=== PATIENT | male | born 1990 | race African-American/Black ===

== ENCOUNTER 2016-10-14 20:39 | Emergency (ER) | payer SELFPAY ==
[2016-10-14 21:00] VITALS: BP 142/79
[2016-10-14] MEDS ORDERED: Ketorolac INJ* 60 MG/2 ML VIAL IM ONE (21:23)
[2016-10-14] MEDS ORDERED: Cephalexin CAP* 500 MG PO ONE (21:24)
[2016-10-14] MEDS ORDERED: HYDROcodone/ACETAMIN 5-325 MG* 1 TAB PO ONE (21:24)
--- NOTE | 2016-10-14 21:51 | ED ---
Throat Pain/Nasal Congestion - HPI Summary HPI Summary: Patient arrives to ED with CC of pain over bottom left canine not radiating to the jaw or ear. Tooth has hole in it for several years. He feels food may have become stuck. Denies trismus, drooling or dysphagia. Pain is 8/10, sharp and throbbing. Denies airway compromise or SOB. Denies ear pain, eye pain, blurry vision or double vision. Otherwise healthy. Pain is worse with chewing and cold drinks, better with ibuprofen, but only improves slightly. Patient denies dental care for several years. - History of Current Complaint Chief Complaint: EDDentalPain Time Seen by Provider: 10/14/16 20:52 Hx Obtained From: Patient Onset/Duration: Sudden Onset Severity: Moderate Associated Signs And Symptoms: Positive: Negative - Epiglottits Risk Factors Epiglottis Risk Factors: Negative - Allergies/Home Medications Allergies/Adverse Reactions: Allergies Allergy/AdvReac Type Severity Reaction Status Date / Time No Known Allergies Allergy Verified 10/14/16 20:48 PMH/Surg Hx/FS Hx/Imm Hx Previously Healthy: Yes - Immunization History Hx Pertussis Vaccination: No Immunizations Up to Date: Unable to Obtain/Confirm Infectious Disease History: No Infectious Disease History: Denies: Traveled Outside the [place] in Last 30 Days - Social History Occupation: Employed Full-time Lives: With Family Alcohol Use: None Hx Substance Use: No Substance Use Type: Reports: None Hx Tobacco Use: Yes Smoking Status (MU): Former Smoker Review of Systems Constitutional: Negative Eyes: Negative Positive: Dental Pain Cardiovascular: Negative Respiratory: Negative Positive: no symptoms reported, see HPI Musculoskeletal: Negative Skin: Negative Psychological: Normal All Other Systems Reviewed And Are Negative: Yes Physical Exam Triage Information Reviewed: Yes Vital Signs On Initial Exam: Initial Vitals Temp Pulse Resp BP Pulse Ox 97 F 75 22 142/69 99 10/14/16 20:46 10/14/16 20:46 10/14/16 20:46 10/14/16 20:46 10/14/16 20:46 Vital Signs Reviewed: Yes Appearance: Positive: Well-Appearing, Well-Nourished Skin: Positive: Warm, Skin Color Reflects Adequate Perfusion Head/Face: Positive: Normal Head/Face Inspection Eyes: Positive: EOMI, TITA, Conjunctiva Clear Neck: Positive: Supple, No Lymphadenopathy Respiratory/Lung Sounds: Positive: Clear to Auscultation Cardiovascular: Positive: Normal, RRR, Pulses are Symmetrical in both Upper and Lower Extremities Musculoskeletal: Positive: Normal, Strength/ROM Intact Neurological: Positive: Normal, Sensory/Motor Intact, Speech Normal Psychiatric: Positive: Normal Diagnostics - Vital Signs Vital Signs Temp Pulse Resp BP Pulse Ox 10/14/16 20:57 97 F 75 22 142/79 99 10/14/16 20:46 97 F 75 22 142/69 99 - Laboratory Lab Statement: Any lab studies that have been ordered have been reviewed, and results considered in the medical decision making process. EENT Course/Dx - Course Course Of Treatment: No dental abscess or lesions seen over area of concern. No drainage from area. Several dental caries, cavities, crowding and broken teeth throughout. Pain on palpation over mandible. No TMJ tenderness. No pain with opening and closing mouth. Poor dental hygiene and outpatient dental care. Will treat for possible dental infection/abscess based on symptoms of pain and radiation to jaw and ear. No allergies. Will treat with Penicillin. Patient to follow up immediately with dentist. - Differential Diagnoses Differential Diagnoses: Dental Abscess, Dental Caries, Odontogenic Pain, Pain of Unknown Etiology - Diagnoses Provider Diagnoses: Pain, dental Discharge - Discharge Plan Condition: Stable Disposition: HOME Prescriptions: HYDROcodone/ACETAMIN 5-325 MG* [[place] 5-325 TAB*] 1 tab PO Q4H PRN #6 tab MDD 6 PRN Reason: Pain Penicillin VK TAB 500 MG(NF) [Penicillin VK 500 mg Tab(NF)] 500 mg PO QID #28 tab MDD 4 Patient Education Materials: Toothache (ED) Forms: *Work Release Referrals: No Primary Care Phys,NOPCP [Primary Care Provider] - Additional Instructions: You have been diagnosed with dental pain with possible infection: Antibiotics as prescribed to you. Penicillin four times daily for 7 days. To minimize the potential for gastrointestinal intolerance, Pencillin should be taken at the start of a meal. If you have any questions about your medication, please contact us or ask your pharmacist. Salt water rinses several times per day will improve healing time. Ibuprofen 600mg three times daily with meals for discomfort. May use lollicaines over the area for comfort. Follow up with a dentist for routine care to prevent recurrence of infections. If fever, worsening pain or swelling develops, see your PCP, dentist or come back to the Emergency Department.
== END 2016-10-14 21:49 | disposition home or self-care (01) ==
LOC: ED 20:39
DX: K08.89 Other specified disorders of teeth and supporting structures (principal); Z87.891 Personal history of nicotine dependence
CPT/HCPCS: 96372; 99282; A9270-GY; J1885

== ENCOUNTER 2017-01-11 07:40 | Emergency (ER) | payer SELFPAY ==
[2017-01-11] MEDS ORDERED: Ibuprofen TAB* 800 MG PO ONE (08:08)
[2017-01-11] MEDS ORDERED: Amoxicillin/Clavulanate TAB* 500 MG PO ONE (08:08)
--- NOTE | 2017-01-11 08:23 | ED ---
Sb Sotelo Angela, scribed for José Miguel Sadler MD on 01/11/17 at 0808 . Throat Pain/Nasal Congestion - HPI Summary HPI Summary: This pt is a 26 y/o male [place] [facility] [place] right lower dental pain since 0200 today. Pt reports he has been in the ED before for the same tooth months ago. He rates his pain 10 out of 10 in severity since 0200 today. He states his tooth is a cracked. Pt has not seen a dentist to have his tooth fixed as he doesn't have insurance. NKDA. Pt denies tobacco, alcohol, drug use. PSHx: fractured right leg in 5th grade. - History of Current Complaint Chief Complaint: EDDentalPain Time Seen by Provider: 01/11/17 07:56 Hx Obtained From: Patient Onset/Duration: Lasting Hours Severity: Severe - 10/10 pain - Allergies/Home Medications Allergies/Adverse Reactions: Allergies Allergy/AdvReac Type Severity Reaction Status Date / Time No Known Allergies Allergy Verified 01/11/17 07:45 PMH/Surg Hx/FS Hx/Imm Hx Endocrine/Hematology History: Denies: Hx Diabetes Cardiovascular History: Denies: Hx Hypertension - Surgical History Surgery Procedure, Year, and Place: fractured right leg in 5th grade Infectious Disease History: Yes Infectious Disease History: Denies: Traveled Outside the [place] in Last 30 Days - Family History Known Family History: Negative: Cardiac Disease, Hypertension - Social History Occupation: Employed Full-time Alcohol Use: None Hx Substance Use: No Substance Use Type: Reports: None Hx Tobacco Use: Yes Smoking Status (MU): Former Smoker Review of Systems Negative: Fever, Chills Eyes: Negative Positive: Dental Pain - right lower tooth Cardiovascular: Negative Respiratory: Negative Musculoskeletal: Negative Skin: Negative Neurological: Negative All Other Systems Reviewed And Are Negative: Yes Physical Exam Triage Information Reviewed: Yes Vital Signs On Initial Exam: Initial Vitals Temp Pulse Resp BP Pulse Ox 97.3 F 73 14 143/61 97 01/11/17 07:42 01/11/17 07:42 01/11/17 07:42 01/11/17 07:42 01/11/17 07:42 Vital Signs Reviewed: Yes Appearance: Positive: Well-Appearing, No Pain Distress Skin: Positive: Warm, Dry Eyes: Positive: EOMI ENT: Positive: Normal ENT inspection, Dental tenderness - right mandibular molar , Other - no facial swelling Neck: Positive: Supple Respiratory/Lung Sounds: Positive: Clear to Auscultation, Breath Sounds Present Cardiovascular: Positive: RRR. Negative: Murmur Abdomen Description: Positive: Nontender Musculoskeletal: Positive: Normal, Strength/ROM Intact Neurological: Positive: Sensory/Motor Intact, Alert, Oriented to Person Place, Time, CN Intact II-III Psychiatric: Positive: Normal - [place] Coma Scale Best Eye Response: 4 - Spontaneous Best Motor Response: 6 - Obeys Commands Best Verbal Response: 5 - Oriented Diagnostics - Vital Signs Vital Signs Temp Pulse Resp BP Pulse Ox 01/11/17 07:42 97.3 F 73 14 143/61 97 - Laboratory Lab Statement: Any lab studies that have been ordered have been reviewed, and results considered in the medical decision making process. EENT Course/Dx - Course Course Of Treatment: 26 yr old with dental pain without facial swelling. DC home on antibiotics. Pain meds. - Diagnoses Provider Diagnoses: Pain due to dental caries, Hypertension Discharge - Discharge Plan Condition: Good Disposition: HOME Prescriptions: Amoxicillin PO (*) [Amoxicillin 500 MG CAP*] 500 mg PO TID #30 cap Ibuprofen TAB* [Motrin TAB* 600 MG] 600 mg PO Q6H PRN #20 tab PRN Reason: Pain Scale 1-5 Patient Education Materials: Hypertension (ED), Toothache (ED) Referrals: BERNICE PATTEN [Doctor of Dental Surgery] - No Primary Care Phys,NOPCP [Primary Care Provider] - The documentation as recorded by the Sb bryant Angela accurately reflects the service I personally performed and the decisions made by , José Miguel Sadler MD.
[2017-01-11 08:30] VITALS: BP 140/62
== END 2017-01-11 08:29 | disposition home or self-care (01) ==
LOC: ED 07:40
DX: K02.9 Dental caries, unspecified (principal); I10 Essential (primary) hypertension; K08.89 Other specified disorders of teeth and supporting structures; Z87.891 Personal history of nicotine dependence
CPT/HCPCS: 99282; A9270-GY

== ENCOUNTER 2017-01-20 19:27 | Emergency (ER) | payer SELFPAY ==
[2017-01-20] MEDS ORDERED: Acetaminophen TAB* 325 MG PO ONE (20:33)
[2017-01-20] MEDS ORDERED: NS 0.9% 1000 ML* 2,000 ML IV ONE (20:33)
[2017-01-20] MEDS ORDERED: Ondansetron INJ* 2 MG/ML VIAL IV ONE (20:33)
--- NOTE | 2017-01-20 20:57 | RAD ---
INDICATION: Right frontal headache. COMPARISON: There are no prior studies available for comparison. TECHNIQUE: Contiguous axial sections of the brain were obtained from the skull base to the vertex without contrast. FINDINGS: The ventricles, cisterns and sulci are within normal limits. No significant focal abnormality or mass effect is seen. There is no evidence for hemorrhage. No significant focal osseous abnormality is seen. The visualized portion of the paranasal sinuses and mastoid air cells appear clear. The adenoid glands are prominent. IMPRESSION: NO EVIDENCE FOR ACUTE INTRACRANIAL ABNORMALITY.
[2017-01-20 21:13] LABS: Hematocrit 48 % (42-52); Hemoglobin 16.5 g/dl (14.0-18.0); Mean Corpuscular HGB Conc 34 g/dl (31-36); Mean Corpuscular Hemoglobin 29 pg (27-31); Mean Corpuscular Volume 86 fL (80-94); Mean Platelet Volume 8 um3 (7.4-10.4); Red Blood Count 5.61 10^6/ul (4.0-5.4); Red Cell Distribution Width 14 % (10.5-15); White Blood Count 10.8 10^3/ul (3.5-10.8)
[2017-01-20 21:27] LABS: ALT 17 U/L (7-52); AST 20 U/L (13-39); Albumin 4.7 g/dL (3.2-5.2); Alkaline Phosphatase 68 U/L (34-104); Anion Gap 6 mmol/L (2-11); BUN/Creatinine Ratio 11.6 (8-20); Blood Urea Nitrogen 14 mg/dL (6-24); C Reactive Protein < 1.00 mg/L (< 5.00); CO2 Carbon Dioxide 28 mmol/L (22-32); Calcium 9.6 mg/dL (8.6-10.3); Chloride 103 mmol/L (101-111); EGFR African American 93.2 (>60); EGFR Non-African American 72.5 (>60); Globulin 2.6 g/dL (2-4); Glucose 92 mg/dL (70-100); Potassium 3.7 mmol/L (3.5-5.0); Sodium 137 mmol/L (133-145); Total Protein 7.3 g/dL (6.4-8.9)
[2017-01-20] MEDS ORDERED: Ketorolac INJ* 30 MG/ML 1 ML VIAL IV ONE (23:37)
--- NOTE | 2017-01-20 23:49 | ED ---
Santana Sotelo Nikita, scribed for Rahul Hood MD on 01/20/17 at 2036 . Headache - HPI Summary HPI Summary: This patient is a 26 year old M presenting to ED with a chief complaint of MCMAHAN since 1200. The CC is described as a gradual onset (has worsened since), pressure in the head (frontal). The patient rates the pain 10/10 in severity. Symptoms aggravated by light and sound. Symptoms alleviated by nothing (took Excedrin Migraine which didnt help). Patient reports rhinorrhea, vision changes (watery in R eye), and sinus congestion. Patient denies ear ache, sore throat, swollen glands, and nausea. Pt reports previous HAs occur in the same area as current one but arent as bad (happens every couple of months). Pt also reports he had a hx of migraines as a kid, but hasnt had one since then. - History Of Current Complaint Chief Complaint: EDHeadache Stated Complaint: POSS MIGRAINE Time Seen by Provider: 01/20/17 20:23 Hx Obtained From: Patient Onset/Duration: Gradual Onset, Started hours ago - since 1200, Still Present, Worse Since Currently Pain Is: Current Pain Scale(0-10)= - 10, Severe Timing: Constant, Hours Character: Pressure Location of Headache: Frontal Aggravating Factor: Bright Lights, Other - sound Allevating Factors: Nothing - took Excedrin Migraine Associated Signs And Symptoms: Other (Noted In Comments) - Patient reports rhinorrhea, vision changes (watery in R eye), and sinus congestion. Patient denies ear ache, sore throat, swollen glands, and nausea. - Allergies/Home Medications Allergies/Adverse Reactions: Allergies Allergy/AdvReac Type Severity Reaction Status Date / Time No Known Allergies Allergy Verified 01/11/17 07:45 PMH/Surg Hx/FS Hx/Imm Hx Endocrine/Hematology History: Denies: Hx Diabetes Cardiovascular History: Denies: Hx Hypertension - Surgical History Surgery Procedure, Year, and Place: fractured right leg in 5th grade Infectious Disease History: No Infectious Disease History: Denies: Traveled Outside the [place] in Last 30 Days - Family History Known Family History: Negative: Cardiac Disease, Hypertension - Social History Alcohol Use: None Hx Substance Use: No Substance Use Type: Reports: None Hx Tobacco Use: Yes Smoking Status (MU): Former Smoker Review of Systems Positive: Other - vision changes (watery in R eye) Positive: Other - rhinorrhea, sinus congestion; denies swollen glands. Negative : Sore Throat, Ear Ache Negative: Nausea Positive: Headache - frontal All Other Systems Reviewed And Are Negative: Yes Physical Exam Triage Information Reviewed: Yes Vital Signs On Initial Exam: Initial Vitals Temp Pulse Resp BP Pulse Ox 98.7 F 75 18 137/77 97 01/20/17 19:29 01/20/17 19:29 01/20/17 19:29 01/20/17 19:29 01/20/17 19:29 Appearance: Positive: Well-Appearing, Pain Distress - mild to moderate Skin: Positive: Warm, Skin Color Reflects Adequate Perfusion, Dry Head/Face: Positive: Normal Head/Face Inspection Eyes: Positive: EOMI, TITA, Other: - tearing in R eye ENT: Positive: Other - positive rhinorrhea, L TM has cerumen impaction, R Tm is normal, Posterior pharynx is normal Neck: Positive: Supple, Nontender, Other: - No cervical adenopathy Respiratory/Lung Sounds: Positive: Clear to Auscultation, Breath Sounds Present Cardiovascular: Positive: RRR Abdomen Description: Positive: Nontender, Soft Bowel Sounds: Positive: Present Musculoskeletal: Positive: Normal, Strength/ROM Intact Neurological: Positive: Normal, Sensory/Motor Intact, Alert, Oriented to Person Place, Time, CN Intact II-III, Other - no neurological deficit Psychiatric: Positive: Affect/Mood Appropriate - [place] Coma Scale Coma Scale Total: 15 [place] Coma Scale Comments: GCS 15 Diagnostics - Vital Signs Vital Signs Temp Pulse Resp BP Pulse Ox 01/20/17 20:03 66 97 01/20/17 20:02 135/72 01/20/17 19:29 98.7 F 75 18 137/77 97 - Laboratory Lab Results: Lab Results 01/20/17 01/20/17 01/20/17 Range/Units 20:55 20:55 20:55 WBC 10.8 (3.5-10.8) 10^3/ul RBC 5.61 H (4.0-5.4) 10^6/ul Hgb 16.5 (14.0-18.0) g/dl Hct 48 (42-52) % MCV 86 (80-94) fL MCH 29 (27-31) pg MCHC 34 (31-36) g/dl RDW 14 (10.5-15) % Plt Count 258 (150-450) 10^3/ul MPV 8 (7.4-10.4) um3 Neut % (Auto) 67.4 (38-83) % Lymph % (Auto) 24.6 L (25-47) % [place] % (Auto) 6.1 (1-9) % Eos % (Auto) 1.2 (0-6) % Baso % (Auto) 0.7 (0-2) % Absolute Neuts (auto) 7.3 (1.5-7.7) 10^3/ul Absolute Lymphs (auto) 2.7 (1.0-4.8) 10^3/ul Absolute Monos (auto) 0.7 (0-0.8) 10^3/ul Absolute Eos (auto) 0.1 (0-0.6) 10^3/ul Absolute Basos (auto) 0.1 (0-0.2) 10^3/ul Absolute Nucleated RBC 0 10^3/ul Nucleated RBC % 0 INR (Anticoag Therapy) 0.89 (0.89-1.11) APTT 30.6 (26.0-36.3) seconds Sodium 137 (133-145) mmol/L Potassium 3.7 (3.5-5.0) mmol/L Chloride 103 (101-111) mmol/L Carbon Dioxide 28 (22-32) mmol/L Anion Gap 6 (2-11) mmol/L BUN 14 (6-24) mg/dL Creatinine 1.21 H (0.67-1.17) mg/dL Est GFR ( Amer) 93.2 (>60) Est GFR (Non-Af Amer) 72.5 (>60) BUN/Creatinine Ratio 11.6 (8-20) Glucose 92 (70-100) mg/dL Calcium 9.6 (8.6-10.3) mg/dL Total Bilirubin 0.40 (0.2-1.0) mg/dL AST 20 (13-39) U/L ALT 17 (7-52) U/L Alkaline Phosphatase 68 (34-104) U/L C-Reactive Protein < 1.00 (< 5.00) mg/L Total Protein 7.3 (6.4-8.9) g/dL Albumin 4.7 (3.2-5.2) g/dL Globulin 2.6 (2-4) g/dL Albumin/Globulin Ratio 1.8 (1-3) Result Diagrams: 01/20/17 20:55 01/20/17 20:55 Lab Statement: Any lab studies that have been ordered have been reviewed, and results considered in the medical decision making process. - CT Brain CT Interpretation Completed By: Radiologist - NO EVIDENCE FOR ACUTE INTRACRANIAL ABNORMALITY. ED physician has reviewed this radiology report and agrees. Re-Evaluation - Re-Evaluation First Eval Re-Evaluation Time: 23:32 Comment: Discussed brain CT results and discharge plan. Headache Course/Dx - Course Assessment/Plan: This patient is a 26 year old M presenting to ED with a chief complaint of MCMAHAN since 1200. The CC is described as a gradual onset (has worsened since), pressure in the head (frontal). The patient rates the pain 10/ 10 in severity. Symptoms aggravated by light and sound. Symptoms alleviated by nothing (took Excedrin Migraine which didnt help). Patient reports rhinorrhea, vision changes (watery in R eye), and sinus congestion. Patient denies ear ache , sore throat, swollen glands, and nausea. Brain CT reveals NO EVIDENCE FOR ACUTE INTRACRANIAL ABNORMALITY. ED physician has reviewed this radiology report and agrees. In the ED course, pt was given fluids and pain medication. Medications reviewed. Pt will be discharged. Pt is agreeable with this plan. MCMAHAN IMPROVED TO 4-5/10 AFTER IVF, ZOFRAN AND TYLENOL. DISCUSSED RESULTS WITH PATIENT. WILL GIVE IV TORADOL AND D/C HOME. F/U PMD; RETURN IF WORSE. - Diagnoses Provider Diagnoses: Headache Discharge - Discharge Plan Condition: Stable Disposition: HOME Patient Education Materials: Acute Headache (ED) [place]: [facility] [place]] Additional Instructions: FOLLOW UP WITH YOUR DOCTOR. RETURN TO THE EMERGENCY DEPARTMENT FOR ANY WORSENING OF YOUR CONDITION; HEADACHE , WEAKNESS, NUMBNESS, YOU FEEL ILL, CHANGE IN VISION OR SPEECH OR QUESTIONS OR CONCERNS. The documentation as recorded by the Santana bryant Nikita accurately reflects the service I personally performed and the decisions made by me, Rahul Hood MD.
[2017-01-21 00:05] VITALS: BP 145/79
== END 2017-01-21 00:05 | disposition home or self-care (01) ==
LOC: ED 19:27
DX: R51 Headache (principal); J34.89 Other specified disorders of nose and nasal sinuses; H53.9 Unspecified visual disturbance; Z87.891 Personal history of nicotine dependence
CPT/HCPCS: 36415; 70450; 80053; 85025; 85610; 85730; 86140; 96361; 96374; 96375; 99282; A9270-GY; J1885; J2405

== ENCOUNTER 2018-01-20 06:45 | Emergency (ER) | payer MEDICAID ==
[2018-01-20] MEDS ORDERED: Acetaminophen TAB* 325 MG PO ONE (07:00)
[2018-01-20] MEDS ORDERED: Penicillin VK TAB* 250 MG PO ONE (07:00)
--- NOTE | 2018-01-20 07:02 | ED ---
Throat Pain/Nasal Congestion - HPI Summary HPI Summary: 27-year-old male presents with dental pain past 3 days. He states that both his upper and lower wisdom tooth pain. He states that his wisdom teeth have been fracturing. He states he has a dental appointment in 2 weeks. He denies any fevers. he admits to swelling of the area. No chest pain or shortness of breath. Has been taking ibuprofen for pain without relief. He states ice helps with some of the pain. - History of Current Complaint Chief Complaint: EDDentalPain Time Seen by Provider: 01/20/18 06:54 - Allergies/Home Medications Allergies/Adverse Reactions: Allergies Allergy/AdvReac Type Severity Reaction Status Date / Time No Known Allergies Allergy Verified 01/20/18 06:50 PMH/Surg Hx/FS Hx/Imm Hx Endocrine/Hematology History: Denies: Hx Diabetes Cardiovascular History: Denies: Hx Hypertension - Surgical History Surgery Procedure, Year, and Place: fractured right leg in 5th grade Infectious Disease History: No Infectious Disease History: Denies: Traveled Outside the [place] in Last 30 Days - Family History Known Family History: Negative: Cardiac Disease, Hypertension - Social History Alcohol Use: None Hx Substance Use: No Substance Use Type: Reports: None Hx Tobacco Use: Yes Smoking Status (MU): Former Smoker Review of Systems Negative: Fever Positive: Dental Pain Negative: Chest Pain Negative: Shortness Of Breath All Other Systems Reviewed And Are Negative: Yes Physical Exam Triage Information Reviewed: Yes Vital Signs On Initial Exam: Initial Vitals Temp Pulse Resp BP Pulse Ox 97.1 F 93 18 148/73 98 01/20/18 06:47 01/20/18 06:47 01/20/18 06:47 01/20/18 06:47 01/20/18 06:47 Vital Signs Reviewed: Yes Appearance: Positive: Well-Appearing Skin: Positive: Warm, Dry Head/Face: Positive: Normal Head/Face Inspection Eyes: Positive: Normal, Conjunctiva Clear ENT: Positive: Normal ENT inspection, Pharynx normal, TMs normal Dental: Positive: Percussion Tenderness @ - 16,17, Gross Decay/Caries @ - 16,17 Neck: Positive: Supple, Nontender Respiratory/Lung Sounds: Positive: Clear to Auscultation, Breath Sounds Present Cardiovascular: Positive: Normal, RRR Musculoskeletal: Positive: Normal Neurological: Positive: Normal Psychiatric: Positive: Normal Diagnostics - Vital Signs Vital Signs Temp Pulse Resp BP Pulse Ox 01/20/18 06:47 97.1 F 93 18 148/73 98 - Laboratory Lab Statement: Any lab studies that have been ordered have been reviewed, and results considered in the medical decision making process. EENT Course/Dx - Course Course Of Treatment: 27-year-old male presents with dental pain past 3 days. He states that both his upper and lower wisdom tooth pain. He states that his wisdom teeth have been fracturing. He states he has a dental appointment in 2 weeks. He denies any fevers. he admits to swelling of the area. No chest pain or shortness of breath. Has been taking ibuprofen for pain without relief. He states ice helps with some of the pain. Has tenderness to tooth 16 and 17. erythema noted to gumline. Will treat with penicillin. We'll give short course of pain medication. Patient understand and agrees with plan. - Differential Diagnoses Differential Diagnoses: Dental Abscess, Dental Caries, Fractured Tooth - Diagnoses Provider Diagnoses: Dental infection Discharge - Sign-Out/Discharge Documenting (check all that apply): Patient Departure - Discharge Plan Condition: Good Disposition: HOME Prescriptions: HYDROcodone/ACETAMIN 5-325 MG* [[place] 5-325 TAB*] 1 tab PO Q4H PRN #8 tab MDD 4 PRN Reason: Pain Penicillin VK 500 MG TAB(NF) [Penicillin VK 500 mg Tab] 500 mg PO QID #27 tab Patient Education Materials: Toothache (ED) Referrals: [facility] [place] [place] [Outside] Additional Instructions: Take antibiotics: 4 times a day for 7 days, first dose given in ED Use ibuprofen every 6 hours and narcotic for break through pain at night every 6 hours Avoid hard, crunchy food until seen by dentist Follow up with dentist as soon as possible Return to ED if develop fever, shortness of breath, pain with eye movement or swelling around eye Establish care with primary care physician - Billing Disposition and Condition Condition: GOOD Disposition: Home Images - Images Dental: 1 - pain 2 - pain
[2018-01-20 07:29] VITALS: BP 116/74
== END 2018-01-20 07:30 | disposition home or self-care (01) ==
LOC: ED 06:45
DX: K04.7 Periapical abscess without sinus (principal); K08.89 Other specified disorders of teeth and supporting structures; Z87.891 Personal history of nicotine dependence
CPT/HCPCS: 99282; A9270-GY

== ENCOUNTER 2018-02-22 10:21 | Emergency (ER) | payer MEDICAID ==
[2018-02-22] MEDS ORDERED: Penicillin VK TAB* 250 MG PO ONE (11:07)
--- NOTE | 2018-02-22 11:09 | ED ---
Throat Pain/Nasal Congestion - HPI Summary HPI Summary: 28-year-old male presents with dental pain since last night. He states it is on his left upper and lower wisdom teeth. He states he has a dental appointment next week. He states he tried to get a dentist appointment past couple weeks but they kept canceling on him. He states that the antibiotics a month ago helps with the pain. He states he taking Tylenol ibuprofen and Orajel for pain and has not been working. No fevers. No nausea or vomiting. No sore throat chest pain or shortness of breath. No pain or swelling around her eyes. - History of Current Complaint Chief Complaint: EDDentalPain Time Seen by Provider: 02/22/18 10:29 - Allergies/Home Medications Allergies/Adverse Reactions: Allergies Allergy/AdvReac Type Severity Reaction Status Date / Time No Known Allergies Allergy Verified 01/20/18 06:50 PMH/Surg Hx/FS Hx/Imm Hx Endocrine/Hematology History: Denies: Hx Diabetes Cardiovascular History: Denies: Hx Hypertension - Surgical History Surgery Procedure, Year, and Place: fractured right leg in 5th grade Infectious Disease History: No Infectious Disease History: Denies: Traveled Outside the [place] in Last 30 Days - Family History Known Family History: Negative: Cardiac Disease, Hypertension - Social History Alcohol Use: None Hx Substance Use: No Substance Use Type: Reports: None Hx Tobacco Use: Yes Smoking Status (MU): Current Every Day Smoker Review of Systems Negative: Fever Positive: Dental Pain Negative: Chest Pain Negative: Shortness Of Breath All Other Systems Reviewed And Are Negative: Yes Physical Exam Triage Information Reviewed: Yes Vital Signs On Initial Exam: Initial Vitals Temp Pulse Resp BP Pulse Ox 97.1 F 92 18 148/85 95 02/22/18 10:23 02/22/18 10:23 02/22/18 10:23 02/22/18 10:23 02/22/18 10:23 Vital Signs Reviewed: Yes Appearance: Positive: Well-Appearing Skin: Positive: Warm, Dry Head/Face: Positive: Normal Head/Face Inspection Eyes: Positive: Normal, EOMI, TITA, Conjunctiva Clear ENT: Positive: Normal ENT inspection, Pharynx normal, TMs normal Dental: Positive: Percussion Tenderness @ - 16,17, Gross Decay/Caries @ - throughout. Negative: Abscess @ Neck: Positive: Supple, Nontender, No Lymphadenopathy Respiratory/Lung Sounds: Positive: Clear to Auscultation, Breath Sounds Present Cardiovascular: Positive: Normal, RRR Abdomen Description: Positive: Nontender, Soft Bowel Sounds: Positive: Present Musculoskeletal: Positive: Normal Neurological: Positive: Normal Psychiatric: Positive: Normal Diagnostics - Vital Signs Vital Signs Temp Pulse Resp BP Pulse Ox 02/22/18 10:23 97.1 F 92 18 148/85 95 - Laboratory Lab Statement: Any lab studies that have been ordered have been reviewed, and results considered in the medical decision making process. EENT Course/Dx - Course Course Of Treatment: 28-year-old male presents with dental pain since last night. He states it is on his left upper and lower wisdom teeth. He states he has a dental appointment next week. He states he tried to get a dentist appointment past couple weeks but they kept canceling on him. He states that the antibiotics a month ago helps with the pain. He states he taking Tylenol ibuprofen and Orajel for pain and has not been working. No fevers. No nausea or vomiting. No sore throat chest pain or shortness of breath. No pain or swelling around her eyes. On exam has tenderness of the upper and lower wisdom teeth. Has erythema around the teeth. No abscess noted. Will treat as a potential dental infection. gave short course of pain medication. Told the importance of following up with dentist. Patient understands agrees plan. - Differential Diagnoses Differential Diagnoses: Dental Abscess, Dental Caries, Fractured Tooth - Diagnoses Provider Diagnoses: Dental infection Discharge - Sign-Out/Discharge Documenting (check all that apply): Patient Departure - Discharge Plan Condition: Good Disposition: HOME Prescriptions: HYDROcodone/ACETAMIN 5-325 MG* [[place] 5-325 TAB*] 1 tab PO Q4H PRN #8 tab MDD 4 PRN Reason: Pain Penicillin VK 500 MG TAB(NF) [Penicillin VK 500 mg Tab] 500 mg PO QID #27 tab Patient Education Materials: Toothache (ED) Referrals: [facility] [Outside] Additional Instructions: Take antibiotics: 4 times a day for 7 days, first dose given in ED Use ibuprofen every 6 hours and narcotic for break through pain at night Avoid hard, crunchy food until seen by dentist Follow up with dentist as soon as possible Return to ED if develop any new or worsening symptoms Establish care with primary care physician - Billing Disposition and Condition Condition: GOOD Disposition: Home Images - Images Dental: 1 - pain 2 - pain
[2018-02-22 11:19] VITALS: BP 141/78
== END 2018-02-22 11:16 | disposition home or self-care (01) ==
LOC: ED 10:21
DX: K04.7 Periapical abscess without sinus (principal); F17.200 Nicotine dependence, unspecified, uncomplicated
CPT/HCPCS: 99282; A9270-GY

== ENCOUNTER 2018-09-25 08:18 | Emergency (ER) | payer SELFPAY ==
--- NOTE | 2018-09-25 11:17 | ED ---
Lower Extremity - HPI Summary HPI Summary: Patient is a 28-year-old male who presents to the ED with a right lateral ankle injury. Patient states he was walking down the stairs when he twisted the right ankle. He is having pain mostly to the lateral side, but endorses some pain to the medial side as well. He denies any numbness or tingling. He denies any color temperature changes. He does endorse swelling throughout. He has fractured this ankle in the past. Denies hitting his head or LOC. Denies any other injuries from the fall. - History of Current Complaint Chief Complaint: EDExtremityLower Stated Complaint: RT ANKLE PAIN PER PT Time Seen by Provider: 09/25/18 08:31 Hx Obtained From: Patient Mechanism Of Injury: Twisted Onset of Pain: Minutes Onset/Duration: Minutes Severity Initially: Moderate Severity Currently: Moderate Pain Intensity: 8 Pain Scale Used: 0-10 Numeric Timing: Constant Location: Is Discrete @ - rihgt lateral ankle pain Character Of Pain: Aching Associated Signs And Symptoms: Positive: Swelling. Negative: Redness, Bruising , Weakness, Dizziness Aggravating Factor(s): Standing, Ambulation Alleviating Factor(s): Rest - Risk Factors Gout Risk Factors: Negative DVT Risk Factors: Negative Septic Arthritis Risk Factor: Negative - Allergies/Home Medications Allergies/Adverse Reactions: Allergies Allergy/AdvReac Type Severity Reaction Status Date / Time No Known Allergies Allergy Verified 09/25/18 08:28 PMH/Surg Hx/FS Hx/Imm Hx Previously Healthy: Yes Endocrine/Hematology History: Denies: Hx Diabetes Cardiovascular History: Denies: Hx Hypertension - Surgical History Surgery Procedure, Year, and Place: fractured right leg in 5th grade - Immunization History Hx Pertussis Vaccination: No Immunizations Up to Date: Yes Infectious Disease History: No Infectious Disease History: Denies: Traveled Outside the [place] in Last 30 Days - Family History Known Family History: Negative: Cardiac Disease, Hypertension - Social History Occupation: Unemployed Lives: With Family Alcohol Use: None Hx Substance Use: No Substance Use Type: Reports: None Hx Tobacco Use: Yes Smoking Status (MU): Former Smoker Review of Systems Constitutional: Negative Negative: Fever, Chills, Skin Diaphoresis Negative: Palpitations, Chest Pain Negative: Shortness Of Breath, Cough Genitourinary: Negative Positive: no symptoms reported, see HPI Positive: Arthralgia - right lateral ankle pain. Negative: Myalgia Skin: Negative Neurological: Negative All Other Systems Reviewed And Are Negative: Yes Physical Exam Triage Information Reviewed: Yes Vital Signs On Initial Exam: Initial Vitals Temp Pulse Resp BP Pulse Ox 97.9 F 89 16 163/98 99 09/25/18 08:23 09/25/18 08:23 09/25/18 08:23 09/25/18 08:23 09/25/18 08:23 Vital Signs Reviewed: Yes Appearance: Positive: Well-Appearing, Well-Nourished Skin: Positive: Warm, Skin Color Reflects Adequate Perfusion Head/Face: Positive: Normal Head/Face Inspection Eyes: Positive: EOMI, Conjunctiva Clear Neck: Positive: Supple, No Lymphadenopathy Respiratory/Lung Sounds: Positive: Clear to Auscultation, Breath Sounds Present Cardiovascular: Positive: RRR, Pulses are Symmetrical in both Upper and Lower Extremities Musculoskeletal: Positive: Pain @ - right lateral ankle pain Neurological: Positive: Alert, Oriented to Person Place, Time, Speech Normal Psychiatric: Positive: Affect/Mood Appropriate AVPU Assessment: Alert Diagnostics - Vital Signs Vital Signs Temp Pulse Resp BP Pulse Ox 09/25/18 08:23 97.9 F 89 16 163/98 99 - Laboratory Lab Statement: Any lab studies that have been ordered have been reviewed, and results considered in the medical decision making process. Lower Extremity Course/Dx - Course Course Of Treatment: Patient is evaluated for right lateral ankle injury. There is soft tissue swelling throughout the lateral side with this moment of ecchymosis dependent to the foot. Plantar flexion and dorsiflexion intact. X- ray obtained which shows soft tissue swelling without evidence of a fracture. Discussed treatment options with the patient. Patient states he cannot use crutches and is requesting a cam boot. He will ice, elevate and use ibuprofen. Ankle sprain dx. - Diagnoses Differential Diagnosis/HQI/PQRI: Positive: Other - ATFL, ligamentous injury, ankle strain, ankle fracture Provider Diagnoses: Ankle sprain Discharge - Sign-Out/Discharge Documenting (check all that apply): Patient Departure Patient Received Moderate/Deep Sedation with Procedure: No - Discharge Plan Condition: Stable Disposition: HOME Patient Education Materials: Ankle Sprain (ED) Referrals: No Primary Care Phys,NOPCP [Primary Care Provider] - Additional Instructions: Keep the ankle elevated as much as possible Ice to the area Ibuprofen 600mg three times daily x 3-4 days Use boot for stabilization followed by an cristian bandage for the next 2 weeks - Billing Disposition and Condition Condition: STABLE Disposition: Home
[2018-09-25 11:18] VITALS: BP 124/86
== END 2018-09-25 11:17 | disposition home or self-care (01) ==
LOC: ED 08:18
DX: S93.401A Sprain of unspecified ligament of right ankle, initial encounter (principal); R60.0 Localized edema; Z87.891 Personal history of nicotine dependence; X50.0XXA Overexertion from strenuous movement or load, initial encounter; Y92.9 Unspecified place or not applicable
CPT/HCPCS: 99282